=== PATIENT | female | born 1965 | race Caucasian/White ===

== ENCOUNTER 2022-06-15 09:31 | Outpatient (CLI) | payer OTHER | END 2022-06-15 09:32 | disposition home or self-care (01) | LOC: TBSIIMAG 09:31 | PROVIDERS: ATTEND Surgery | DX: M47.26 Other spondylosis with radiculopathy, lumbar region (principal); R29.898 Other symptoms and signs involving the musculoskeletal system; M41.9 Scoliosis, unspecified | CPT/HCPCS: 72110 ==